=== PATIENT | male | born 1995 | race Caucasian/White ===

== ENCOUNTER 2021-03-24 13:14 | Emergency (ER) | payer OTHER ==
[~2021-03-24] VITALS: Ht 180.3 cm; Wt 65.7 kg
[2021-03-24] MEDS ORDERED: PROAAER10 INH (13:23)
[2021-03-24] MEDS ORDERED: FLUT11IN INH (13:23)
[2021-03-24] MEDS ORDERED: NS 1,000 ML IV ONE (13:35)
[2021-03-24] MEDS ORDERED: KETOROLAC 30 MG/ML 1ML VIAL IV ONE (14:00)
[2021-03-24 14:19] LABS: HEMATOCRIT 44.5 % (42.0-52.0); HEMOGLOBIN 15.3 g/dl (13.5-17.5); MEAN CORPUSCULAR HEMOGLOBIN 32.1 pg (27.0-33.0); MEAN CORPUSCULAR HGB CONC 34.4 g/dl (32.0-36.5); MEAN CORPUSCULAR VOLUME 93.3 fl (80.0-96.0); PLATELET COUNT, AUTOMATED 291 10^3/uL (150-450); RED BLOOD COUNT 4.77 10^6/uL (4.30-6.10); WHITE BLOOD COUNT 3.5 10^3/uL (4.0-10.0)
[2021-03-24 14:47] LABS: ALBUMIN 4.1 GM/DL (3.2-5.2); ALT/SGPT 23 U/L (12-78); BILIRUBIN,DIRECT 0.2 MG/DL (0.0-0.2); BILIRUBIN,TOTAL 0.6 MG/DL (0.2-1.0); BLOOD UREA NITROGEN 15 MG/DL (7-18); CARBON DIOXIDE LEVEL 27 MEQ/L (21-32); CHLORIDE LEVEL 107 MEQ/L (98-107); GLOMERULAR FILTRATION RATE > 60.0 (>60); GLUCOSE, FASTING 97 MG/DL (70-100); POTASSIUM SERUM 4.1 MEQ/L (3.5-5.1); SODIUM LEVEL 140 MEQ/L (136-145); TOTAL PROTEIN 7.1 GM/DL (6.4-8.2)
[2021-03-24 14:48] LABS: ATYPICAL LYMPH 1 % (0-5); BASOPHILS 3 % (0-1); EOSINOPHILS 3 % (0-3); LYMPHOCYTES 30 % (16-44); MONOCYTES 4 % (0-5); NEUTROPHILS 59 % (28-66)
[2021-03-24 14:49] LABS: PLATELET ESTIMATE NORMAL (NORMAL)
[2021-03-24] MEDS ORDERED: KETO10TAB PO (15:39)
[2021-03-24 15:45] VITALS: BP 126/60
== END 2021-03-24 16:10 | disposition home or self-care (01) ==
LOC: M ED 13:14
DX: M62.830 Muscle spasm of back (principal); J45.909 Unspecified asthma, uncomplicated
CPT/HCPCS: 36415; 80048; 80076; 81001; 85025; 96361; 96374; 99284; J1885

== ENCOUNTER → 2021-07-18 | Outpatient (REF) | payer OTHER ==
[~2021-07-18] MED LIST: FLUT11IN INH; KETO10TAB PO; PROAAER10 INH
== END ==
LOC: M LAB REF 18:01
PROVIDERS: ATTEND Physician Assistant Medical
DX: J02.9 Acute pharyngitis, unspecified (principal)